=== PATIENT | female | born 1980 | race Caucasian/White ===

== ENCOUNTER 2016-06-20 16:22 | Emergency (ER) | payer OTHER ==
--- NOTE | 2016-06-20 17:21 | EDPRACDOC ---
- History of Present Illness Onset: 06/11/16 HPI: PT COMPLAINS OF N/V/D SINCE 06/11/16, STATES THAT EVERYTHING SHE EATS OR DRINKS "GOES RIGHT THROUGH ME", STATES WENT TO WORK LAST NIGHT, ATE A SANDWICH AND "THREW IT ALL UP." PT STATES THAT TODAY SHE TOOK HER FIRST DOSE OF [place] AND ABOUT 30 MINS LATER DEVELOPED A FLUSHED FEELING, HEART RACING, SOBR. PT DENIES FEVER OR CHILLS, STATES SHE VISITED HER BROTHER OVER MONUMENT AND HE WAS SICK WELL. Symptoms Occured: Reports: Spontaneous Duration: Reports: Intermittent Emesis: Reports: Food Particles Recent: Reports: None Pain Quality: Reports: Aching Pain Severity: Mild Pain Location: Reports: Diffuse History of: Denies: Urolithiasis Relevant History of: Reports: Diabetes. Denies: Abdominal Surgery, Contact Exposure, Hydrocephalus, HIV, Immunosuppression, Irritable Bowel Disease, Cystic Fibrosis, Lactose Intolerance Associated Signs & Symptoms: Reports: Nausea, Vomiting, Diarrhea. Denies: Frequency, Vaginal Bleeding, Hematemesis, Anorexia, Melena, Dysuria, Fever, Urgency, Hematuria, Chills, Vaginal Discharge Oral Intake: Normal Urinary Output: Normal <Austin Barber - Last Filed: 06/20/16 18:02> <Nabila Pickens - Last Filed: 06/20/16 19:05> - General Information Chief Complaint: Nausea,Vomiting,Diarrhea Stated Complaint: SICKNESS Time Seen by Provider: 06/20/16 17:10 Home Medications: Home Medications Glimepiride [Amaryl] 4 mg PO DAILY 10/13/15 Fenofibrate 160 mg PO DAILY 06/20/16 Ibuprofen/Famotidine [Duexis 800-26.6 mg Tablet] 1 tab PO TID 06/20/16 MetFORMIN (Immediate Release) [GLUCOPHAGE Immed Release] 1,000 mg PO BID Promethazine [Phenergan] 25 mg PO Q6H PRN #10 tab 06/20/16 Sertraline HCl 25 mg PO QHS 06/20/16 Allergies/Adverse Reactions: Allergies Allergy/AdvReac Type Severity Reaction Status Date / Time No Known Allergies Allergy Verified 06/20/16 17:28 - Treatment Prior to ED Arrival Reported Medications/Treatment [facility] Treatment BLS Comment 152/80, 93, 98%, 97.8, [id number] <Nabila Pickens - Last Filed: 06/20/16 19:05> ED Past Medical History - History Reviewed Yes Nurses notes reviewed and agree except as marked - Patient Medical History Cardiac History: Reports: Hypertension Psychological History: Denies: Depression Systemic History: Reports: Cancer (endometrial cancer), Diabetes Surgical History: Reports: Cholecystectomy, Hysterectomy (+BSO), Tonsillectomy/ Adnoidectomy - Social Medical History Smoking Status: Never smoker ETOH: None Substance Abuse: None <SunilAustin - Last Filed: 06/20/16 18:02> EDM Review of Systems - Review of Systems Constitutional: negative: Chills, Fever Eyes: negative: Blurred Vision, Double Vision Ears: negative: Drainage Throat: negative: Pain Nose: negative: Congestion, Discharge Respiratory: Shortness of Breath. negative: Cough, Wheezing Cardiovascular: negative: Chest Pain, Palpitations Gastrointestinal: Diarrhea, Nausea, Pain, Vomiting Genitourinary: negative: Dysuria, Frequency Neurological: negative: Dizziness, Headache, Numbness, Weakness Musculoskeletal: No Symptoms Reported Integumentary: No Symptoms Reported <Austin Barber - Last Filed: 06/20/16 18:02> - Physical Exam Constitutional: Alert (Awake), No apparent distress Oriented to: Time, Person, Place Last recorded Vital Signs: Oxygen Pulse Oxygen Saturation O2 Device Oxygen Flow Rate Fraction of Inspired Oxygen ( FIO2) - HEENT Head: Normal ( normocephalic) Eye Exam: Normal (PERRL, EOMI, Sclera white) Oropharynx: Normal (Pharynx:Moist without exudate,Gums-no swelling) Tympanic Membrane: Normal ENT EAC: Normal TMJ: Normal Nose: No Symptoms Reported (septum midline) Neck: Normal (FROM, trachea at midline) - Respiratory/Cardiovascular Respiratory: Normal - CTA (BBS clear to auscultation without adventitious sounds ) Cardiovascular: Normal (RRR without murmur, gallop or rub) - GI Auscultation: Normal (NABS) Palpation: Normal (Soft,No rebound or guarding, non distended) Tenderness: Non tender Gregg's Sign: Negative - Musculoskeletal Back: Normal (Non-Tender) Extremities: Normal (Normal tone, Pulses 2+ No cyanosis or edema, FROM) - Integumentary Skin: Normal, Warm, Dry Lymphatics: Normal (no adenopathy) - Neurologic Memory Impaired: Normal Motor Function: Normal (Normal tone, Pulses 2+ No cyanosis or edema, FROM) Cranial Nerve: Normal (CN II-X11 intact sensation, strength 5/5) Cerebellar: Normal Mood Description: Normal Perception: Normal <Austin Barber - Last Filed: 06/20/16 18:02> - Physical Exam Last recorded Vital Signs: Last Vital Signs Temp 98.5 F 06/20/16 16:25 Pulse 80 06/20/16 18:00 Resp 18 06/20/16 18:00 BP 129/60 06/20/16 18:00 Pulse Ox 96 06/20/16 18:00 Oxygen Pulse Oxygen Saturation 96 O2 Device Oxygen Flow Rate Fraction of Inspired Oxygen ( FIO2) <Nabila Pickens - Last Filed: 06/20/16 19:05> - Additional Information DISCUSSED WITH DR PICKENS, CARE ENDORSED TO HER PENDING FINAL RESULTS <Austin Barber - Last Filed: 06/20/16 18:02> - Re-evaluation Re-evaluation 1 Re-evaluation Time: 19:04 (IMPROVED) - Results 06/20/16 17:55 06/20/16 17:55 WBC 8.8 xk/uL (3.8-10.8) 06/20/16 17:55 RBC 4.57 xM/uL (4.20-5.40) 06/20/16 17:55 Hgb 12.0 g/dL (12.0-16.0) 06/20/16 17:55 Hct 36.2 % (36-47) 06/20/16 17:55 MCV 79 fL (81-99) L 06/20/16 17:55 MCH 26.3 pg (27-32) L 06/20/16 17:55 MCHC 33.3 g/dl (33-36) 06/20/16 17:55 RDW 16.5 % (11.5-14.5) H 06/20/16 17:55 Plt Count 229 xk/uL (130-400) 06/20/16 17:55 MPV 7.8 fL (7.4-10.4) 06/20/16 17:55 Neut % (Auto) 72.0 % (45-76) 06/20/16 17:55 Lymph % (Auto) 20.6 % (17-44) 06/20/16 17:55 [place] % (Auto) 4.8 % (3-10) 06/20/16 17:55 Eos % (Auto) 0.9 % (0-5) 06/20/16 17:55 Baso % (Auto) 1.7 % (0-2) 06/20/16 17:55 Absolute Neuts (auto) 6.34 xk/uL (1.7-8.2) 06/20/16 17:55 Absolute Lymphs (auto) 1.76 xk/uL (0.65-4.75) 06/20/16 17:55 Sodium 140 mEq/L (137-146) 06/20/16 17:55 Potassium 4.3 mEq/L (3.5-5.1) 06/20/16 17:55 Chloride 102 mEq/L (98-107) 06/20/16 17:55 Carbon Dioxide 26 mMOL/L (22-33) 06/20/16 17:55 Anion Gap 16 mEq/L (8-16) 06/20/16 17:55 BUN 11 MG/DL (7-17) 06/20/16 17:55 Creatinine 0.50 MG/DL (0.52-1.04) L 06/20/16 17:55 Estimated GFR (MDRD) > 60 mL/min (>=60) 06/20/16 17:55 Glucose 111 MG/DL (70-99) H 06/20/16 17:55 Calculated Osmolality 269 MOs/Kg (270-290) L 06/20/16 17:55 Calcium 9.4 MG/DL (8.4-10.2) 06/20/16 17:55 Total Bilirubin 0.7 MG/DL (0.2-1.3) 06/20/16 17:55 AST 50 IU/L (14-36) H 06/20/16 17:55 ALT 63 IU/L (9-52) H 06/20/16 17:55 Alkaline Phosphatase 86 IU/L (38-126) 06/20/16 17:55 Total Protein 7.8 G/DL (6.3-8.2) 06/20/16 17:55 Albumin 4.0 G/DL (3.5-5.0) 06/20/16 17:55 Lipase 194 U/L (23-300) 06/20/16 17:55 Urine Color Yellow 06/20/16 17:33 Urine Clarity Clear 06/20/16 17:33 Urine pH 6.0 (5.0-8.0) 06/20/16 17:33 Ur Specific [place] 1.005 (1.003-1.035) 06/20/16 17:33 Urine Protein Neg (NEG/TRACE) 06/20/16 17:33 Urine Glucose (UA) Neg (NEGATIVE) 06/20/16 17:33 Urine Ketones Neg (NEGATIVE) 06/20/16 17:33 Urine Occult Blood Neg (NEG/TRACE) 06/20/16 17:33 Urine Nitrite Neg (NEGATIVE) 06/20/16 17:33 Urine Bilirubin Neg (NEGATIVE) 06/20/16 17:33 Urine Urobilinogen <2.0 MG/DL (0-1) 06/20/16 17:33 Ur Leukocyte Esterase Neg (NEGATIVE) 06/20/16 17:33 Urine RBC 0-2 (0-5) 06/20/16 17:33 Urine WBC 0-2 (0-5) 06/20/16 17:33 Ur Epithelial Cells Occ 06/20/16 17:33 Hyaline Casts 2-5 (0-2) H 06/20/16 17:33 Urine Mucus Occ (NEG/OCC) 06/20/16 17:33 Urine Test Neg (NEGATIVE) 06/20/16 17:33 Lab Results 06/20/16 06/20/16 06/20/16 17:55 17:55 17:33 WBC 8.8 RBC 4.57 Hgb 12.0 Hct 36.2 MCV 79 L MCH 26.3 L MCHC 33.3 RDW 16.5 H Plt Count 229 MPV 7.8 Neut % (Auto) 72.0 Lymph % (Auto) 20.6 [place] % (Auto) 4.8 Eos % (Auto) 0.9 Baso % (Auto) 1.7 Absolute Neuts (auto) 6.34 Absolute Lymphs (auto) 1.76 Sodium 140 Potassium 4.3 Chloride 102 Carbon Dioxide 26 Anion Gap 16 BUN 11 Creatinine 0.50 L Estimated GFR (MDRD) > 60 Glucose 111 H Calculated Osmolality 269 L Calcium 9.4 Total Bilirubin 0.7 AST 50 H ALT 63 H Alkaline Phosphatase 86 Total Protein 7.8 Albumin 4.0 Lipase 194 Urine Color Urine Clarity Urine pH Ur Specific [place] Urine Protein Urine Glucose (UA) Urine Ketones Urine Occult Blood Urine Nitrite Urine Bilirubin Urine Urobilinogen Ur Leukocyte Esterase Urine RBC Urine WBC Ur Epithelial Cells Hyaline Casts Urine Mucus Urine Test Neg 06/20/16 17:33 WBC RBC Hgb Hct MCV MCH MCHC RDW Plt Count MPV Neut % (Auto) Lymph % (Auto) [place] % (Auto) Eos % (Auto) Baso % (Auto) Absolute Neuts (auto) Absolute Lymphs (auto) Sodium Potassium Chloride Carbon Dioxide Anion Gap BUN Creatinine Estimated GFR (MDRD) Glucose Calculated Osmolality Calcium Total Bilirubin AST ALT Alkaline Phosphatase Total Protein Albumin Lipase Urine Color Yellow Urine Clarity Clear Urine pH 6.0 Ur Specific [place] 1.005 Urine Protein Neg Urine Glucose (UA) Neg Urine Ketones Neg Urine Occult Blood Neg Urine Nitrite Neg Urine Bilirubin Neg Urine Urobilinogen <2.0 Ur Leukocyte Esterase Neg Urine RBC 0-2 Urine WBC 0-2 Ur Epithelial Cells Occ Hyaline Casts 2-5 H Urine Mucus Occ Urine Test <Nabila Pickens - Last Filed: 06/20/16 19:05> <Austin Barber - Last Filed: 06/20/16 18:02> - Departure Yes I personally saw and evaluated the patient. Disposition: Home Education/Counseling Given To: Patient Education/Counseling Given Regarding: Diagnosis, Treatment, Follow Up <Nabila Pickens - Last Filed: 06/20/16 19:05> - Departure Condition: Fair Final Diagnosis: Adverse drug reaction, Nausea and vomiting Instructions: Acute Nausea and Vomiting (ED) Referrals: None,No Provider [Primary Care Provider] - One Week Gigi Cantu II, MD [Staff Physician] - One Week Prescriptions: Promethazine [Phenergan] 25 mg PO Q6H PRN #10 tab PRN Reason: Nausea/Vomiting
[2016-06-20] MEDS ORDERED: ONDANSETRON HCL 4 MG/2 ML VIAL IV ONE (17:23)
[2016-06-20] MEDS ORDERED: NS 1,000 ML IV ONE (17:23)
[2016-06-20 17:28] VITALS: TEMP 98.5; BMI 51.3
[2016-06-20 17:57] LABS: LEUKOCYTES/URINE NEG (NEGATIVE); NITRITE/URINE NEG (NEGATIVE); RBC/URINE 0-2 (0-5); URINE OCCULT BLOOD NEG (NEG/TRACE); WBC/URINE 0-2 (0-5)
[2016-06-20 18:13] LABS: AUTOMATED BASOPHIL 1.7 % (0-2); AUTOMATED EOSINOPHIL 0.9 % (0-5); AUTOMATED LYMPH 20.6 % (17-44); AUTOMATED MONOCYTE 4.8 % (3-10); MPV 7.8 fL (7.4-10.4)
[2016-06-20 18:26] LABS: BLOOD UREA NITROGEN 11 MG/DL (7-17); CALCIUM 9.4 MG/DL (8.4-10.2); CALCULATED OSMOLALITY 269 MOs/Kg (270-290); CHLORIDE 102 mEq/L (98-107); GLUCOSE 111 MG/DL (70-99); SODIUM LEVEL 140 mEq/L (137-146); TOTAL PROTEIN 7.8 G/DL (6.3-8.2)
[2016-06-20] MEDS ORDERED: PROMETHAZINE 25 MG/ML VIAL IV ONE (19:04)
[2016-06-20 19:37] VITALS: BP 132/65; PULSE 75
== END 2016-06-20 19:38 | disposition home or self-care (01) ==
LOC: ED 16:22
DX: R11.2 Nausea with vomiting, unspecified (principal); T50.995A Adverse effect of other drugs, medicaments and biological substances, initial encounter; I10 Essential (primary) hypertension; E11.9 Type 2 diabetes mellitus without complications; Z79.899 Other long term (current) drug therapy
CPT/HCPCS: 36415; 80053; 81001; 81025; 83690; 85025; 96361; 96374; 96375; 99284; J2405; J2550